=== PATIENT | female | born 1995 | race Caucasian/White ===

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

== ENCOUNTER 2017-04-28 10:54 | Emergency (ER) | payer BC ==
[2017-04-28 12:54] VITALS: BP 113/66
--- NOTE | 2017-04-28 13:01 | UC ---
Throat Pain/Nasal Orion HPI - HPI Summary HPI Summary: sinus pain and pressure x 10 days + pnd, cough , no fever, no chills - History of Current Complaint Chief Complaint: UCRespiratory Stated Complaint: SINUS CONGESTION COUGH Time Seen by Provider: 04/28/17 12:54 Hx Obtained From: Patient Hx Last Menstrual Period: 04/19/17 Onset/Duration: Gradual Onset, Lasting Days - 10, Still Present Severity: Moderate Pain Intensity: 5 Cough: Nonproductive Associated Signs & Symptoms: Positive: Hoarseness, Sinus Discomfort, Nasal Discharge. Negative: Wheezing, Fever, Vomiting, Rash - Allergies/Home Medications Allergies/Adverse Reactions: Allergies Allergy/AdvReac Type Severity Reaction Status Date / Time MS Sulfa Antibiotics Allergy Intermediate Rash Verified 04/28/17 12:47 [Sulfa Antibiotics] PMH/Surg Hx/FS Hx/Imm Hx Previously Healthy: Yes Other History Of: Negative For: HIV, Hepatitis B, Hepatitis C, Anticoagulant Therapy - Surgical History Surgical History: Yes Surgery Procedure, Year, and Place: fx - Family History Known Family History: Positive: Cardiac Disease, Hypertension Negative: Diabetes - Social History Alcohol Use: None Substance Use Type: None Smoking Status (MU): Never Smoked Tobacco Review of Systems Constitutional: Negative Skin: Negative Eyes: Negative ENT: Sore Throat, Nasal Discharge, Sinus Congestion, Sinus Pain/Tenderness Respiratory: Cough Cardiovascular: Negative Gastrointestinal: Negative Genitourinary: Negative Is Patient Immunocompromised?: No All Other Systems Reviewed And Are Negative: Yes Physical Exam Triage Information Reviewed: Yes Appearance: Well-Appearing, No Pain Distress, Well-Nourished Vital Signs: Initial Vital Signs Temp 97.4 F 04/28/17 12:48 Pulse 62 04/28/17 12:48 Resp 16 04/28/17 12:48 BP 113/66 04/28/17 12:48 Pulse Ox 98 04/28/17 12:48 Vital Signs Reviewed: Yes Eye Exam: Normal Eyes: Positive: Conjunctiva Clear ENT: Positive: Normal ENT inspection, Hearing grossly normal, Pharynx normal, Nasal drainage, TMs normal, Sinus tenderness Neck exam: Normal Neck: Positive: Supple, Nontender, No Lymphadenopathy Respiratory: Positive: Chest non-tender, Lungs clear, Normal breath sounds Cardiovascular: Positive: RRR, No Murmur, Pulses Normal Skin Exam: Normal Throat Pain/Nasal Course/Dx - Differential Dx/Diagnosis Provider Diagnoses: sinusitis Discharge - Discharge Plan Condition: Stable Disposition: HOME Prescriptions: Amoxicillin/Clavulanate TAB* [Augmentin TAB 875*] 875 mg PO BID #20 tab Fluconazole [Diflucan 150 MG (NF)] 150 mg PO ONCE #1 tab Patient Education Materials: Sinusitis (ED) Referrals: Non Staff,Doctor [Primary Care Provider] - If Needed
== END 2017-04-28 13:04 | disposition home or self-care (01) ==
LOC: UCCORT 10:54
DX: J32.9 Chronic sinusitis, unspecified (principal)
CPT/HCPCS: 99212; G0463

== ENCOUNTER 2017-07-25 16:27 | Emergency (ER) | payer BC ==
[2017-07-25 18:15] VITALS: BP 109/66
--- NOTE | 2017-07-25 18:19 | UC ---
Skin Complaint HPI - HPI Summary HPI Summary: abscess on inner right thigh, minimal drainage - History of Current Complaint Chief Complaint: UCSkin Time Seen by Provider: 07/25/17 18:16 Stated Complaint: RIGHT INNER THIGH LACERATION Hx Obtained From: Patient Hx Last Menstrual Period: 07/16/17 ?: No Onset/Duration: Sudden Onset Timing: Constant Pain Intensity: 4 Pain Scale Used: 0-10 Numeric Location: Discrete Character: Pain, Redness Aggravating Factor(s): Touch Alleviating Factor(s): Nothing Associated Signs & Symptoms: Positive: Tenderness - Allergy/Home Medications Allergies/Adverse Reactions: Allergies Allergy/AdvReac Type Severity Reaction Status Date / Time Sulfa (Sulfonamide Allergy Rash Verified 07/25/17 18:05 Antibiotics) Review of Systems Constitutional: Negative Skin: Other - erythemic area inner right thigh Eyes: Negative ENT: Negative Respiratory: Negative Cardiovascular: Negative Gastrointestinal: Negative Genitourinary: Negative Motor: Negative Neurovascular: Negative Musculoskeletal: Negative Neurological: Negative Psychological: Negative Is Patient Immunocompromised?: No All Other Systems Reviewed And Are Negative: Yes PMH/Surg Hx/FS Hx/Imm Hx Previously Healthy: Yes Other History Of: Negative For: HIV, Hepatitis B, Hepatitis C, Anticoagulant Therapy - Surgical History Surgical History: Yes Surgery Procedure, Year, and Place: fx LEFT FA. REMOVAL OF EMILIANO RIGHT ARM. - Family History Known Family History: Positive: Cardiac Disease, Hypertension Negative: Diabetes - Social History Occupation: Student Lives: Dormitory/Roommates Alcohol Use: None Substance Use Type: None Smoking Status (MU): Never Smoked Tobacco Physical Exam Triage Information Reviewed: Yes Appearance: Well-Appearing, No Pain Distress, Well-Nourished Vital Signs: Initial Vital Signs Temp 98.7 F 07/25/17 18:07 Pulse 69 07/25/17 18:07 Resp 20 07/25/17 18:07 BP 109/66 07/25/17 18:07 Pulse Ox 100 07/25/17 18:07 Vital Signs Reviewed: Yes Eye Exam: Normal Eyes: Positive: Conjunctiva Clear ENT Exam: Normal ENT: Positive: Normal ENT inspection, Hearing grossly normal. Negative: Trismus , Muffled voice, Hoarse voice Dental Exam: Normal Neck exam: Normal Neck: Positive: Supple, Nontender Respiratory Exam: Normal Respiratory: Positive: Chest non-tender, No respiratory distress, No accessory muscle use Cardiovascular Exam: Normal Cardiovascular: Positive: RRR, Pulses Normal, Brisk Capillary Refill Musculoskeletal Exam: Normal Musculoskeletal: Positive: Strength Intact, ROM Intact, No Edema Neurological Exam: Normal Neurological: Positive: Alert, Muscle Tone Normal Psychological Exam: Normal Skin Exam: Other Skin: Positive: Other - erythema , small circular area inner mid right thigh Course/Dx - Course Course Of Treatment: doxy bid for 10 days, diflucan prn for vulvovaginal candidiasis, warm compresses follow with replaced by [facility] return or go to emergency department as needed - Diagnoses Provider Diagnoses: abscess with cellultis inner right thigh Discharge - Sign-Out/Discharge Documenting (check all that apply): Discharge/Admit/Transfer - Discharge Plan Condition: Stable Disposition: HOME Prescriptions: DOXYcycline CAP(*) [DOXYcycline 100MG CAP(*)] 100 mg PO BID 7 Days #13 cap Fluconazole [Diflucan 150 MG (NF)] 150 mg PO ONCE #2 tab Patient Education Materials: Cellulitis (ED), Abscess (ED), Heat Pack Application (ED) Referrals: [facility] [Outside] - 2 Days Additional Instructions: Follow up with [facility] in 2 days for recheck. If symptoms get any worse please go to the emergency department. - Billing Disposition and Condition Condition: STABLE Disposition: HOME
[2017-07-25] MEDS ORDERED: DOXYcycline CAP(*) 100 MG PO ONE (18:32)
== END 2017-07-25 18:47 | disposition home or self-care (01) ==
LOC: UCCORT 16:27
DX: L02.415 Cutaneous abscess of right lower limb (principal); L03.115 Cellulitis of right lower limb; Z88.2 Allergy status to sulfonamides
CPT/HCPCS: 87070; 87077; 87186; 87205; 87640; 87641; 99212; A9270-GY; G0463

== ENCOUNTER 2019-02-17 11:42 | Emergency (ER) | payer BC ==
--- OUTSIDE RECORDS SUMMARY | 2019-02-17 12:06 | XMS REPORT | Summary of Care ---
:1995 Author Organization [facility] Address [address] [place] [address] Care Team Providers Name Role Phone Pcp, No Primary Care Provider Unavailable Reason for Visit Reason Comments New Patient chest injury during hockey game 01/22 Encounter Details Date Type Department Care Team Description 02/03/2019 Office Visit Estefania Hawthorne Matthew Rib contusion , right, initial encounter (Primary Dx); MARTHA DIAZ Acute costochondritis [address] [place] [address] [place] [id number] [phone] Allergies Active Allergy Reactions Severity Noted Date Comments Sulfa Antibiotics Rash Low 02/04/2018 documented as of this encounter (statuses as of 02/04/2019) Medications Medication Sig Dispensed Refills Start Date End Date Status Spironolactone 50 MG Take 50 mg by 3 12/24/2018 Active Oral Tablet (ALDACTONE) mouth daily Naproxen 500 MG Oral Take 1 tablet 60 tablet 0 02/03/2019 03/05/2019 Active Tablet by mouth Two times daily with meals documented as of this encounter (statuses as of 02/04/2019) Active Problems No known active problemsdocumented as of this encounter (statuses as of 2018) Social History Tobacco Use Types Packs/Day Years Used Date Never Smoker Smokeless Tobacco: Never Used Alcohol Use Drinks/Week oz/Week Comments No Alcohol Habits Answer Date Recorded How often do you have a drink containing alcohol? Never 02/04/2018 How many drinks containing alcohol do you have on a typical Not asked day when you are drinking? How often do you have six or more drinks on one occasion? Not asked Sex Assigned at Date Recorded Not on file Job Start Date Occupation Industry Not on file Not on file Not on file Travel History Travel Start Travel End No recent travel history available. documented as of this encounter Last Filed Vital Signs Vital Sign Reading Time Taken Comments Blood Pressure 114/61 02/03/2019 8:00 AM EST Pulse 65 02/03/2019 8:00 AM EST Temperature - - Respiratory Rate - - Oxygen Saturation - - Inhaled Oxygen Concentration - - Weight 66.6 kg (146 lb 12.8 oz) 02/03/2019 8:00 AM EST Height 165.1 cm (5' 5") 02/03/2019 8:00 AM EST Body Mass Index 24.43 02/03/2019 8:00 AM EST documented in this encounter Patient Instructions Patient InstructionsSt Stella Leahy LPN - 02/03/2019 7:45 AM ESTThe patient is instructed to call the office with any question/concerns or if symptoms worsen. documented in this encounter Progress Notes Haris Mac PA - 02/03/2019 7:45 AM EST Maria C is a new patient of Dr. Hart's comes in today with a complaint of Chest wall pain. On 01/22/2019 she was playing in a hockey game when she got hit injuring her chest wall. This pain has persisted they want to make sure there is no rib fracture and therefore the visit to the office today. Please see new patient information and record for complete medical history, family history, and review of systems. Exam: Patient is well developed, well nourished in no acute distress, sitting comfortably on the exam table today. Alert and oriented x3, responds to questions appropriately with proper mood and affect. She does have tenderness throughout the first rib mostly on the right side. No tenderness up to hersternoclavicular joint or throughout her clavicle. She is full active range of motion about the shoulder and with her cervical spine. She is able to take a deep breath without difficulty. Neurovascularly intact Radiographs: X-rays of her chest wall showed no evidence of any acute abnormalities Impression: Right rib contusion doubtful fracture, costochondritis Plan: Options have been reviewed with Maria C. Limited activities as pain will also follow-up when necessary This document was dictated using Dragon Naturally Speaking Medical software. A reasonable attempt at proof reading has been made to minimize errors. Please call our office if you have any questions. documented in this encounter Plan of Treatment Health Maintenance Due Date Last Done Comments MMR Vaccines (1 of 1 - Standard 1998 series) DTaP,Tdap,and Td Vaccines (1 - 2004 Tdap) HIV Screening 2010 Varicella Vaccines (1 of 2 - 13+ 2010 2-dose series) HPV Vaccines (1 - Female 3-dose 2012 series) Cervical Cancer Screening 3 years 2018 Influenza Vaccine 12/28/2018 Pneumococcal Vaccine: 65+ Years (1 2062 of 2 - PCV13) HIB Vaccines Aged Out No longer eligible based on patient's age to complete this topic Hepatitis A Vaccines Aged Out No longer eligible based on patient's age to complete this topic Hepatitis B Vaccines Aged Out No longer eligible based on patient's age to complete this topic IPV Vaccines Aged Out No longer eligible based on patient's age to complete this topic Pneumococcal Vaccine: Pediatrics Aged Out No longer eligible based on (0 to 5 Years) and At-Risk patient's age to complete this Patients (6 to 64 Years) topic documented as of this encounter Results Not on filedocumented in this encounter Visit Diagnoses Diagnosis Rib contusion, right, initial encounter - Primary Acute costochondritis Tietze's disease documented in this encounter
[2019-02-17 12:13] VITALS: BP 99/63
--- NOTE | 2019-02-17 12:26 | UC ---
Complaint Female HPI - HPI Summary HPI Summary: 23 yo [employer] student with a hx of yeast vaginitis, usually related to antibiotics. She has itch and white discharge, no odor. Amenorrheic due to IUD. She is not concerned about having an STI and declines screening, but would like to use diflucan, which she has used with success and without side effects in the past. - History Of Current Complaint Chief Complaint: UCGU Stated Complaint: PERSONAL Time Seen by Provider: 02/17/19 12:11 Hx Obtained From: Patient Hx Last Menstrual Period: does not have reg periods, has an IUD Onset/Duration: Gradual Onset, Lasting Days Timing: Constant Severity Initially: Mild Severity Currently: Mild Pain Intensity: 0 Character: Not Applicable Aggravating Factor(s): Nothing Alleviating Factor(s): Nothing Associated Signs And Symptoms: Positive: Negative - Allergies/Home Medications Allergies/Adverse Reactions: Allergies Allergy/AdvReac Type Severity Reaction Status Date / Time Sulfa (Sulfonamide Allergy Rash Verified 02/17/19 12:06 Antibiotics) hard cider Allergy Severe Rash Uncoded 02/17/19 12:06 wiskey Allergy Severe Hives Uncoded 02/17/19 12:06 Home Medications: Home Medications Levonorgestrel (Iud) [Liletta IUD] 18.6 mcg IU 02/17/19 [History] Spironolactone TAB* [Aldactone TAB*] 50 mg PO DAILY 02/17/19 [History Confirmed 02/17/19] PMH/Surg Hx/FS Hx/Imm Hx Previously Healthy: Yes Other History Of: Negative For: HIV, Hepatitis B, Hepatitis C, Anticoagulant Therapy - Surgical History Surgical History: Yes Surgery Procedure, Year, and Place: fx LEFT FA. REMOVAL OF EMILIANO RIGHT ARM. - Family History Known Family History: Positive: Cardiac Disease, Hypertension Negative: Diabetes - Social History Occupation: Student Lives: Dormitory/Roommates Alcohol Use: Rare Substance Use Type: None Smoking Status (MU): Never Smoked Tobacco Review of Systems All Other Systems Reviewed And Are Negative: Yes Constitutional: Positive: Negative Skin: Positive: Negative Eyes: Positive: Negative ENT: Positive: Negative Respiratory: Positive: Negative Cardiovascular: Positive: Negative Genitourinary: Positive: Vaginal/Penile Itching. Negative: Dysuria, Hematuria, Frequency Motor: Positive: Negative Neurovascular: Positive: Negative Musculoskeletal: Positive: Negative, Other: - hx on hockey injuries. Neurological: Positive: Negative Psychological: Positive: Negative Is Patient Immunocompromised?: No Physical Exam Triage Information Reviewed: Yes Appearance: Well-Appearing, No Pain Distress Vital Signs: Initial Vital Signs Temp 98.4 F 02/17/19 12:08 Pulse 68 02/17/19 12:08 Resp 16 02/17/19 12:08 BP 99/63 02/17/19 12:08 Pulse Ox 98 02/17/19 12:08 Respiratory: Positive: Lungs clear Cardiovascular: Positive: RRR, No Murmur Pelvic Exam: Positive: Other - Exam declined; she would like to use fluconazole and follow up if it is not effective Complaint Female Dx - Course Course Of Treatment: fluconazole for treatment. States that this is completely typical of her previous experience of yeast vaginitis. - Differential Dx/Diagnosis Differential Diagnosis/HQI/PQRI: Other - vaginitis Provider Diagnosis: Vaginitis Discharge ED - Sign-Out/Discharge Documenting (check all that apply): Patient Departure All imaging exams completed and their final reports reviewed: No Studies - Discharge Plan Condition: Good Disposition: HOME Prescriptions: Fluconazole 150 MG TAB* [Diflucan 150 MG TAB*] 150 mg PO ONCE #1 tablet Patient Education Materials: Vaginitis (ED) Referrals: No Primary Care Phys,NOPCP [Primary Care Provider] - Additional Instructions: You have been prescribed fluconazole for treatment of suspected yeast vaginitis. As discussed, you will return for further evaluation if you do not have the expected result following the treatment. - Billing Disposition and Condition Condition: GOOD Disposition: Home
== END 2019-02-17 12:35 | disposition home or self-care (01) ==
LOC: UCCORT 11:42
DX: N76.0 Acute vaginitis (principal); Z88.2 Allergy status to sulfonamides; Z91.09 Other allergy status, other than to drugs and biological substances
CPT/HCPCS: 99212; G0463